=== PATIENT | female | born 1995 | race African-American/Black ===

== ENCOUNTER 2022-03-03 14:25 | Emergency (ER) | payer SELFPAY ==
[~2022-03-03] VITALS: Ht 170.2 cm; Wt 61.0 kg
[2022-03-03 14:34] VITALS: BP 139/93
== END 2022-03-03 17:20 | disposition left against medical advice (07) ==
LOC: ER 14:25
DX: Z53.21 Procedure and treatment not carried out due to patient leaving prior to being seen by health care provider (principal)